=== PATIENT | female | born 1995 | race Caucasian/White ===

== ENCOUNTER → 2016-07-18 | Day surgery (SDC) | payer OTHER ==
[2016-06-29 15:02] VITALS: Ht 162.6 cm; Wt 71.8 kg
[~2016-07-18] VITALS: Ht 162.6 cm; Wt 71.8 kg
[~2016-07-18] MED LIST: AMT50 PO; ATROPINE SULFATE 0.1 MG/ML 5ML SYR IV PRN; BCPILLS PO; BUPIVACAINE/EPINEPHRINE 0.5% MPF 1:200,000 30 ML VIAL ONE; CEFAZOLIN 2000 MG/60 ML D5W 60 ML IV SCH; CEFTRIAXONE SOD 1 GM VIAL ONE; CEFTRIAXONE SOD INJ 1 GM in DEXTROSE 5% ADD-VANTAGE 50ML 50 ML IV ONE; DEXAMETHASONE SOD INJ 4 MG/ML VIAL ONE; EpHEDrine SULFATE INJ 50 MG/ML AMP IV PRN; EpINEphrine INJ 1MG/ML AMP 1 MG/ML AMP ONE; FENTANYL CITRATE INJ 50 MCG/1 ML 2 ML VIAL ONE; FLUMAZENIL 0.1 MG/1 ML 10 ML VIAL IV PRN; GLYCOPYRROLATE INJ 0.2 MG/ML VIAL ONE; HYDROmorphone INJ 1 MG/ML SYR IV PRN; INHALER INH; LACTATED RINGER'S 1000ML IV SCH; LIDOCAINE HCL 2% 2 ML VIAL (20MG/ML) ONE; MEPIVACAINE HCL 1% 30 ML VIAL ONE; MIDAZOLAM HCL 1 MG/ML 2ML VIAL ONE; NALOXONE HCL 0.4 MG/1 ML VIAL/CARP IV PRN; NEOSTIGMINE METHYLSULFATE 5 MG/5 ML SYR ONE; ONDANSETRON INJ 2 MG/ML 2 ML VIAL IV PRN; ONDANSETRON INJ 2 MG/ML 2 ML VIAL ONE; PROMETHAZINE HCL INJ 12.5 MG in SODIUM CHLORIDE 0.9% 50ML 50 ML IV PRN; PROPOFOL IV EMULSION 10 MG/ML 20 ML VIAL IV ONE; RIZA5TAB10 PO; ROCURONIUM BROMIDE 10 MG/ML 5 ML VIAL ONE; SODIUM CHLORIDE 0.9% 1000ML 1,000 ML IV SCH; SODIUM CHLORIDE 0.9% INJ 10 ML VIAL ONE
--- NOTE | 2016-07-18 06:53 | History & Physical Bridge Note ---
H&P Re-Evaluation Bridge Note: I have examined the patient, reviewed the History & Physical and in the interval since the performance of the History & Physical I have noted the following changes of clinical significance: No changes noted
--- NOTE | 2016-07-18 06:55 | Discharge Instructions ---
Discharge Instructions Visit Reason for Visit: Right Shoulder Impingement With Biceps Tendinopath Discharge Discharge Diagnosis / Problem: same Discharge Goals Goal(s): Decrease discomfort, Improve function Medications Stopped Medications Name(s): na Restart Stopped Medication(s): use scripts as directed Activity Recommendations Activity Limitations: as noted below Lifting Limitations: until after follow-up appointment Exercise/Sports Limitations: until after follow-up appointment May Resume Sexual Activity: after follow-up appointment Shower/Bathe: keep incision dry Driving or Machine Use: Anesthesia . Post Anesthesia Instructions: If you have had General Anesthesia or IV Sedation: * Do not drive today. * Resume driving when surgeon permits. * Do not make important decisions or sign legal documents today. * Call surgeon for: 1. Temperature elevations greater than 101 degrees F. 2. Uncontrollable pain. 3. Excessive bleeding. 4. Persistent nausea and vomiting. 5. Medication intolerance (nausea, vomiting or rash). * For nausea and vomiting use only clear liquids such as: tea, soda, bouillon until nausea subsides, then gradually increase diet as tolerated. * If you have any concerns or questions, call your surgeon's office. If physician is unavailable and it is an emergency, call 911 or go to the nearest emergency room. . Instructions / Follow-Up Instructions / Follow-Up The following are instructions to follow after "Shoulder Surgery" including, Acromioplasty, Rotator Cuff Repair and Instability Surgery ACTIVITY RECOMMENDATIONS: * Minimize activity after surgery. * No excessive walking, jogging, sports or laboring. * Return to activity is individualized depending on the patient and type of surgery. * Driving is not permitted until at least your first post operative visit. Please ask your doctor when it is safe to resume driving. * Expect increased discomfort with increased activity. Continue to ice the shoulder as needed. SCHOOL/WORK RECOMMENDATIONS: * You may return to sedentary work or school when you are feeling more comfortable. This is usually 3-7 days after surgery. MEDICATIONS: * You will have a prescription for pain medication and an anti-inflammatory medication after surgery. * Use the pain medication for severe pain and the anti-inflammatory for less severe pain. Once the pain medication has run out, try to use the anti-inflammatory medication. If this is not effective, contact the office for assistance. * The pain medication may cause nausea, constipation and drowsiness. You should see how they affect you before driving or similar activity. * The anti-inflammatory medication may cause stomach upset and bleeding. If this occurs let your doctor know immediately . * Take a stool softener like Colace or a laxative like Senokot to prevent constipation. DIET: * Resume previous diet. SPECIAL CARE: ICE: You have the option of an ice cooler, gel packs or ice bags. * If you have an ice cooler, refer to the instructions for that device. The ice cooler may be used continuously. * If you do not have an ice cooler, you will need to use ice bags or gel packs. Do not apply ice directly to the skin. Use a thin dressing or max shirt between the skin and ice bag. Apply ice for 20-30 minutes and repeat every 2-4 hours. This is especially important for the first 7-10 days after surgery. Once the pain improves, use ice as needed. ELEVATION: * You may be more comfortable sleeping in an upright position. Use the sling to elevate your arm. DRESSING: * Your dressing will be changed at your first therapy appointment approximately 4-5 days after surgery. Band-aids, tape strips or gauze may be applied. You may then change your dressing daily. * Reapply dressing followed by the EBIce cooling pad (if chosen) and then the sling. * Always wash your hands prior to touching the incision area. * Once the stitches are removed, you may leave the wound open to air or cover with gauze. * Expect some bloody drainage for the first few days after surgery. * Leave the tape strips, if present, in place for 5-7 days. * Band-aids and gauze may be changed daily. * There may be a gauze pad in your armpit area. This can be changed daily or replaced by a dry washcloth. SLING/BRACE: * You will need to use a sling or brace after surgery. The length of time the sling is used is dependent upon the type of surgery performed. * Arthroscopic Acromioplasty requires use of the sling for 2-4 weeks for comfort. * Labral procedures and Rotator Cuff Repairs require use of the sling for a longer period of time. Please check with your doctor prior to discontinuing the sling. BATHING: * You may shower or sponge-bathe immediately after surgery. The post operative shoulder dressing is mostly water-tight. You may shower right over this dressing, but be reasonably careful not to get the gauze or incision wet. * Once the dressing has been changed on the fourth or fifth day after surgery, you may shower and get the incision wet. * Wash with regular soap and water. * Do not bathe (submerge the incision), soak, swim or use a hot tub until the incision is completely healed over with normal skin and the doctor has given the OK to proceed. * There is no need to apply any ointments, powders or salves to your incision. * Do not apply alcohol or hydrogen peroxide directly to the incision. * Diluted peroxide (50:50 mixture with sterile saline) may be used to clean dried blood from around the incision area. THERAPY: * You will begin therapy four or five days after surgery. * Organized therapy with the therapist is important for the first 2-4 months after surgery depending on the type of procedure. During that time you will attend therapy 1-3 times per week. * You will also need to do daily exercises for range of motion and strength as instructed. * Patients who have a Capsular Shift Procedure will need to abide by temporary range of motion limitations. * Patients having Rotator Cuff Surgery are not allowed to actively lift their arms until 4-6 weeks after surgery. * Please check with your doctor regarding appropriate motion restrictions. FOLLOW UP VISIT: * If not already scheduled, please call the office at to schedule a follow-up appointment for 10 days after surgery and monthly thereafter. Diet Recommendations Recommended Home Diet: resume previous diet Procedures Procedures Performed: see op note Pending Studies Studies pending at discharge: no Medical Emergencies . Who to Call and When: Medical Emergencies: If at any time you feel your situation is an emergency, please call 911 immediately. . Non-Emergent Contact Non-Emergency issues call your: Specialist Call Non-Emergent contact if: temperature is above 101.5 . . "Provider Documentation" section prepared by Alex Bolden.
--- NOTE | 2016-07-18 09:08 | [facility] Post Operative Brief Note ---
Immediate Operative Summary Operative Date Jul 18, 2016. Pre-Operative Diagnosis Right Shoulder Impingement with Biceps Tendinopathy Post-Operative Diagnosis Same Procedure(s) Performed Right Shoulder Arthroscopic SLAP Repair, Biceps Tenodesis, Biceps Tenotomy, Subacromial Decompression Surgeon Dr Bolden Boiler Service Technician Surgeon(s) Kaylin Cornell PA-C Estimated Blood Loss Trace Findings impingement bursitis Fluids (cc crystalloids) 1000cc Specimens None Drains none Anesthesia GET/block Complication(s) None Disposition Recovery Room / PACU
--- NOTE | 2016-07-18 09:31 | OPERATIVE REPORT ---
DATE OF OPERATION: 07/18/2016 SURGEON: Dr. Bolden. DAIRY PROCESSING EQUIPMENT OPERATOR: Joey Cornell PA-C. PREOPERATIVE DIAGNOSES: Chronic impingement pain, right shoulder, question labral tear, question biceps SLAP injury. POSTOPERATIVE DIAGNOSES: Impingement syndrome only. No labral tear, no instability, no biceps tenosynovitis. OPERATION PERFORMED: 1. Exam under anesthesia. 2. Diagnostic arthroscopy. 3. Arthroscopic subacromial bursectomy with CA ligament release and small resection for inferior projection of the acromion. PERIOPERATIVE SITUATION: Medically cleared female with intractable shoulder pain has been followed conservatively for an extended period of time. At this point, still has intractable shoulder pain. Options were discussed with her continuing nonoperative management, she wanted to assess her shoulder and see if there was anything that could be fixed surgically because she was frustrated. No guarantees were given. All risks and benefits were discussed in detail with her and her mother. OPERATION: The patient appropriately identified, site verified, consent verified, 2 grams of Ancef confirmed being given. The right shoulder was examined revealing no ligamentous instability. The shoulder was stable to both anterior inferior and posterior inferior stressing. The shoulder had full range of motion. She was then carefully placed in a beach chair position and right upper extremity prepped and draped in usual routine fashion. The joint was entered without difficulty. There was some minor tenosynovitis anteriorly. There was a cord like middle glenohumeral ligament with a sublabral foramen. Underneath that was the subscap that was intact. Looking down the biceps groove there was no major tenosynovitis. There was no SLAP lesion. There was some minor creasing posteriorly on the labrum, but no detachment. The inferior glenohumeral ligament was well attached to a very flat labrum, but there was no labral detachment. It could not be rolled up. This was a developmental labrum anatomy. It was not a traumatic labrum. The glenohumeral joint was then left and the subacromial space entered. There was an exuberant amount of bursitis. This was carefully resected and the CA ligament identified. There was an anterior projection in the very medial anterior aspect of the acromion which was clearly abnormal, was skeletonized with the electrothermal device and flattened with the shaver. I did not do an extended subacromial decompression. Looking from all angles the bursa was completely excised. There was no rotator cuff tears. The procedure was then terminated. All instruments and fluid removed. The portals closed with 3-0 nylon, dressed with Xeroform, 4 x 4 gauze, ABD pads and Ioban dressing. Estimated blood loss was trace. Crystalloid 1000 mL. Likely this pain syndrome was based on muscle imbalance and posture as well as topographical anatomy of the acromion. Hopefully, this will help. No guarantees given. This was discussed in detail with the patient and mom preop as well. I attest to the content of the Intraoperative Record and any orders documented therein. Any exceptions are noted below. MTDD
--- NOTE | 2016-07-18 09:56 | OPERATIVE REPORT ---
DATE OF OPERATION: 07/18/2016 PREOPERATIVE DIAGNOSIS: Right shoulder chronic impingement with possible labral tear and superior labrum anterior posterior injury. POSTOPERATIVE DIAGNOSIS: Right shoulder impingement syndrome with subacromial bursitis. PROCEDURE: Right shoulder arthroscopy, subacromial bursectomy with CA ligament release and subacromial decompression. SURGEON: Dr. Bolden. LIBRARY MANAGER: Jon Corenll PA-C. HISTORY OF PRESENT ILLNESS: This 21-year-old white female presented to the office with complaints of right shoulder pain that had been ongoing and was not responsive to conservative management. She elected to proceed with surgical intervention after being educated about potential risks and outcomes. OPERATION: The patient was given a regional block and then taken to the operating room where she was given general anesthetic. She was prepped and draped in the usual sterile fashion. Please see Dr. Bolden's operative report for specifics of the procedure. I was present for the entire case from initial patient positioning through final wound closure. Assistance was provided in patient positioning, arthroscopy, and final wound closure. The patient was taken to the recovery room in satisfactory condition. I attest to the content of the Intraoperative Record and any orders documented therein. Any exceptio ns are noted below.
[2016-07-18 10:44] VITALS: BP 96/67; PULSE 68; O2SAT 98
--- NOTE | 2016-07-18 10:51 | Anesthesia Progress Nt - [facility] ---
Anesthesia Post Op Note Date & Time Jul 18, 2016 at 10:51 Vital Signs Pain Intensity: 0 Vital Signs Past 12 Hours Date Time Temp Pulse Resp B/P Pulse Ox O2 Delivery O2 Flow Rate FiO2 07/18/16 10:44 68 16 96/67 98 Room Air 07/18/16 10:18 36.6 64 16 111/75 98 Room Air 07/18/16 10:14 125/79 07/18/16 10:10 67 18 07/18/16 10:10 36.4 69 17 125/79 99 Room Air 07/18/16 10:10 67 18 100 07/18/16 10:09 119/76 07/18/16 10:05 62 18 98 07/18/16 10:05 63 18 07/18/16 10:04 120/73 07/18/16 10:00 75 24 07/18/16 10:00 77 24 100 07/18/16 09:59 126/77 07/18/16 09:55 67 17 99 07/18/16 09:55 67 17 07/18/16 09:54 133/78 07/18/16 09:50 88 18 100 07/18/16 09:50 84 18 07/18/16 09:49 127/85 07/18/16 09:45 89 22 07/18/16 09:45 89 22 98 07/18/16 09:44 138/85 07/18/16 09:40 88 20 07/18/16 09:40 85 20 98 07/18/16 09:39 141/91 07/18/16 09:35 97 20 97 07/18/16 09:35 96 20 07/18/16 09:34 142/89 07/18/16 09:30 117 25 07/18/16 09:30 117 25 100 07/18/16 09:29 112/99 07/18/16 09:26 36.6 96 16 139/90 100 Humidified Oxygen 6 Mask 07/18/16 09:25 116 139/90 99 07/18/16 09:25 116 07/18/16 08:15 30 07/18/16 08:14 88 14 122/71 100 07/18/16 08:14 88 07/18/16 08:09 92 12 113/67 100 07/18/16 08:09 86 07/18/16 08:04 70 07/18/16 08:04 68 0 114/58 100 07/18/16 07:59 71 0 119/63 100 07/18/16 07:59 71 07/18/16 07:54 88 07/18/16 07:54 89 7 133/93 100 07/18/16 07:49 69 07/18/16 07:49 71 17 123/77 98 07/18/16 07:44 87 07/18/16 07:44 84 16 123/88 100 07/18/16 07:43 90 25 150/101 100 Mask 10 07/18/16 07:42 150/101 07/18/16 07:39 77 07/18/16 07:39 74 0 100 07/18/16 07:34 63 07/18/16 07:34 62 0 99 07/18/16 07:29 69 0 100 07/18/16 07:29 70 07/18/16 07:24 76 07/18/16 07:24 73 0 100 07/18/16 07:19 93 0 07/18/16 07:14 75 0 07/18/16 07:01 36.6 86 16 130/85 100 Room Air Notes Mental Status: alert / awake / arousable, participated in evaluation Pt Amnestic to Procedure: Yes Nausea / Vomiting: adequately controlled Pain: adequately controlled Airway Patency, RR, SpO2: stable & adequate BP & HR: stable & adequate Hydration State: stable & adequate Anesthetic Complications: no major complications apparent
== END | disposition home or self-care (01) ==
LOC: X.SURG 06:43
PROVIDERS: ATTEND Physical Medicine & Rehabilitation Sports Medicine
DX: M75.41 Impingement syndrome of right shoulder (principal); J45.909 Unspecified asthma, uncomplicated; Z90.89 Acquired absence of other organs; Z90.49 Acquired absence of other specified parts of digestive tract; Z98.818 Other dental procedure status

== ENCOUNTER 2017-02-16 13:57 | Emergency (ER) | payer OTHER ==
[~2017-02-16] VITALS: Ht 162.6 cm; Wt 73.2 kg
[~2017-02-16 13:57] MED LIST changes: -ATROPINE SULFATE 0.1 MG/ML 5ML SYR IV PRN; -BUPIVACAINE/EPINEPHRINE 0.5% MPF 1:200,000 30 ML VIAL ONE; -CEFAZOLIN 2000 MG/60 ML D5W 60 ML IV SCH; -CEFTRIAXONE SOD 1 GM VIAL ONE; -CEFTRIAXONE SOD INJ 1 GM in DEXTROSE 5% ADD-VANTAGE 50ML 50 ML IV ONE; -DEXAMETHASONE SOD INJ 4 MG/ML VIAL ONE; -EpHEDrine SULFATE INJ 50 MG/ML AMP IV PRN; -EpINEphrine INJ 1MG/ML AMP 1 MG/ML AMP ONE; -FENTANYL CITRATE INJ 50 MCG/1 ML 2 ML VIAL ONE; -FLUMAZENIL 0.1 MG/1 ML 10 ML VIAL IV PRN; -GLYCOPYRROLATE INJ 0.2 MG/ML VIAL ONE; -HYDROmorphone INJ 1 MG/ML SYR IV PRN; -LACTATED RINGER'S 1000ML IV SCH; -LIDOCAINE HCL 2% 2 ML VIAL (20MG/ML) ONE; -MEPIVACAINE HCL 1% 30 ML VIAL ONE; -MIDAZOLAM HCL 1 MG/ML 2ML VIAL ONE; -NALOXONE HCL 0.4 MG/1 ML VIAL/CARP IV PRN; -NEOSTIGMINE METHYLSULFATE 5 MG/5 ML SYR ONE; -ONDANSETRON INJ 2 MG/ML 2 ML VIAL IV PRN; -ONDANSETRON INJ 2 MG/ML 2 ML VIAL ONE; -PROMETHAZINE HCL INJ 12.5 MG in SODIUM CHLORIDE 0.9% 50ML 50 ML IV PRN; -PROPOFOL IV EMULSION 10 MG/ML 20 ML VIAL IV ONE; -RIZA5TAB10 PO; -ROCURONIUM BROMIDE 10 MG/ML 5 ML VIAL ONE; -SODIUM CHLORIDE 0.9% 1000ML 1,000 ML IV SCH; -SODIUM CHLORIDE 0.9% INJ 10 ML VIAL ONE
[2017-02-16 14:01] VITALS: TEMP 37.1; Ht 162.6 cm; Wt 73.2 kg
[2017-02-16] MEDS ORDERED: MoRPHine SULFATE 10 MG/ML CARP/VIAL IM STA (14:44)
[2017-02-16] MEDS ORDERED: RIZA5TAB10 PO (15:06)
--- NOTE | 2017-02-16 15:39 | EMERGENCY ROOM VISIT NOTE ---
ED Visit Note First contact with patient: 14:22 CHIEF COMPLAINT: Upper back pain HISTORY OF PRESENT ILLNESS: This 21-year-old female patient presents to the emergency department with complaint of upper back pain after an injury around 12 PM today. Patient states that she was putting saddle on her horse when he shifted his weight and "body slammed me into a brick wall.". The patient states that she had immediate pain in her upper back between her shoulder blades , that has progressively worsened to her diffuse upper and lower back, as well as bilateral neck and shoulder pain. The pain is constant and worse with movement of the torso or arms. There is no arm or leg numbness or weakness. There has been no vomiting or abdominal pain. She denies any saddle paresthesias, bowel or bladder dysfunction, difficulty breathing, chest pain. She denies any other associated injuries, she did not hit her head or have loss of consciousness. REVIEW OF SYSTEMS: No significant prior back problems. No dizziness, chest pain, or faintness before the fall. No injuries to the head or extremities. PMH: The patient is healthy; there is no significant medical or surgical history. SOCIAL HISTORY: Patient lives at home. PHYSICAL EXAM: Vital Signs: Reviewed Nurse's notes. MENTAL STATUS: Alert and cooperative. NECK: Supple, non-tender. HEART: Regular rate and rhythm without murmurs, ectopy, gallops, or rubs. LUNGS: Clear to auscultation and breath sounds equal, no wheezes, rales, or rhonchi. BACK: Tenderness in the paraspinous muscles in the thoracic area. No tenderness over the spinous processes of the lumbar vertebrae. No ecchymoses seen. EMERGENCY DEPARTMENT COURSE: I examined the patient. She has midline tenderness in the thoracic spine between T3 - T7, and midline lumbar spine, with generalized paraspinous muscles of the neck, upper, and lower back. Negative urine . X-rays of the thoracic and lumbar spine do not show any fractures or mal-alignment. The patient was given IM morphine and IM Toradol, with good improvement in her pain. Patient was updated on all results and plan for discharge home, she was instructed to follow-up with her PCP for any ongoing symptoms, she verbalized understanding. The patient was discharged home in stable condition and ambulatory. Current/Historical Medications Scheduled Rizatriptan Benzoate (Maxalt), 1 TAB PO UD Allergies Coded Allergies: No Known Allergies (Unverified , 07/18/16) Vital Signs Date Time Temp Pulse Resp B/P (MAP) Pulse Ox O2 Delivery O2 Flow Rate FiO2 02/16/17 18:28 66 18 120/73 98 02/16/17 16:41 59 18 114/66 99 Room Air 02/16/17 15:05 83 18 127/74 99 Room Air 02/16/17 14:01 37.1 115 18 139/80 97 Room Air Laboratory Results Test 02/16/17 15:09 Bedside Urine Test NEG (NEG) Medications Administered Medications (Trade) Dose Ordered Sig/Jean Claude Route Start Time Stop Time Status Last Admin Dose Admin Morphine Sulfate (MoRPHine SULFATE INJ) 8 mg NOW STAT IM 02/16/17 14:44 02/16/17 14:47 DC 02/16/17 15:08 8 MG Ketorolac Tromethamine (Toradol Inj) 60 mg NOW STAT IM 02/16/17 17:13 02/16/17 17:15 DC 02/16/17 17:38 60 MG Departure Information Impression Primary Impression: Contusion of upper back Dispostion Home / Self-Care Condition GOOD Referrals No Doctor, Assigned (PCP) Patient Instructions ED Back Care Tips, ED Low Back Pain Injury, [facility] Additional Instructions Rest for 3 days, ice to the back, ibuprofen 600 mg every 6 hours as needed for pain. Follow up with your own physician in 3 to 4 days if you are not improved. Problem Qualifiers Primary Impression: Contusion of upper back Encounter type: initial encounter Laterality: unspecified laterality Qualified Codes: S20.229A - Contusion of unspecified back wall of thorax, initial encounter
--- NOTE | 2017-02-16 15:43 | DIAGNOSTIC IMAGING REPORT ---
THORACIC SPINE 3 VIEWS HISTORY: hit into a wall, midline thoracic and lumbar spine tenderness COMPARISON: None. FINDINGS: There is no fracture. No subluxation. Paraspinal soft tissues are unremarkable. Small endplate osteophyte at the T9-T10 level. This measures a relatively preserved for age. Cholecystectomy. IMPRESSION: No fracture or subluxation within the thoracic spine. Electronically signed by: Bandar Soto M.D. 02/16/2017 3:42 PM Dictated Date/Time: 02/16/2017 3:41 PM
--- NOTE | 2017-02-16 15:45 | DIAGNOSTIC IMAGING REPORT ---
L-SPINE MIN 4 VIEWS ROUTINE CLINICAL HISTORY: 21 years-old Female presenting with hit into a wall, midline thoracic and lumbar spine tenderness. TECHNIQUE: Frontal, bilateral oblique, lateral, and coned in lateral views of the lumbar spine were obtained. COMPARISON: None. FINDINGS: Normal lumbar lordosis. Vertebral bodies maintain normal height and alignment. Intervertebral disc spaces preserved. No radiographic evidence of compression deformity or subluxation. No osseous neural foraminal narrowing. Cholecystectomy clips noted. IMPRESSION: Normal lumbar spine. Electronically signed by: Theo Cantrell M.D. 02/16/2017 3:43 PM Dictated Date/Time: 02/16/2017 3:42 PM
[2017-02-16] MEDS ORDERED: KETOROLAC TROMETHAMINE 60 MG/2 ML VIAL IM STA (17:13)
[2017-02-16 18:28] VITALS: BP 120/73; PULSE 66; O2SAT 98
== END 2017-02-16 18:30 | disposition home or self-care (01) ==
LOC: C.EDB 13:58 → C.EDD 18:30
DX: S20.219A Contusion of unspecified front wall of thorax, initial encounter (principal); W22.8XXA Striking against or struck by other objects, initial encounter